=== PATIENT | female | born 1955 | race Caucasian/White ===

== ENCOUNTER 2016-10-22 07:55 | Emergency (ER) | payer SELFPAY ==
[~2016-10-22] VITALS: Ht 157.5 cm; Wt 85.3 kg
[~2016-10-22 07:55] MED LIST: ALLOPURINOL100 M1 PO; AMITRIPTYLINE10 MG PO; ATENOLOL100 MG PO; BENAZEPRIL40 MG PO; BENTYL20 MG PO; CENTRUM1 TAB PO; ESTRADIOL1 MG OR; FLEXERIL5 MG PO; FUROSEMIDE 20MG20 MG FT; HYDROCHLOROTHIA25 M1 PO; HYDROCODONE BI473 ML PO; LEVOTHYROXIN0.112 M1 PO; LYRICA100 MG PO; MEDROL 4MG. DOSE4 MG PO; MELOXICAM7.5 MG PO; METOPROLOL TAR100 MG PO; MORPHINE SULFAT15 M2 PO; NEURONTIN800 MG PO; NORCO 325 MG-101 TAB PO; PERCOCET 325 MG1 TA3 PO; POTASSIUM CHLO20 ME2 PO; PRILOSEC20 M1 PO; ROBAXIN 500 MG500 MG PO; SYNTHROID0.112 MG PO; VENLAFAXINE75 M1 PO; VITAMIN D1000 IU PO; ZOFRAN ODT4 MG PO; ZYLOPRIM 100MG100 MG PO
[2016-10-22 08:17] LABS: HEMOGLOBIN 14.4 g/dL (12.2-16.2); LYMPH # 3.4 K/mm3 (0.7-4.5); LYMPH % 22.3 % (10-50.0)
--- NOTE | 2016-10-22 08:18 | Emergency Room Report ---
History of Present Illness Time Seen by MD Taylor Presenting Problem in Triage Pt arrived:Wheelchair Presenting Problem:RIGHT FLANK PAIN Onset of symptoms date/time:10/22/16 or onset unknown for: Treatment Prior to Arrival: [employer] Provided by: Sepsis Risk Assessment: Temp: 98.4 B/P: 115/67 MAP: 83 Pulse: 84 Resp: 20 Recent fever? N Clinical Suspician of Infection? N Mental Status: 1 - Regular (Normal Baseline) Sepsis Risk:Low Sepsis Risk Have you (or family members/close friends) recently traveled outside the [place]? N If Yes, where/when: Have you had exposure to infectious disease within the past month? N TB? Other? Specify: Hx renal calculi requiring stenting in past; patient of Dr. Kirby; last calculi was about three years ago. Presents with acute and intense intermittent R flank pain, hematuria, nausea since last night, classic for renal calculus in past. Has chronic pain syndrome and chronic neuropathy. ALLERGIES Coded Allergies: Sulfa (Sulfonamide Antibiotics) (01/12/16) ciprofloxacin (From CIPRO) (ITCH[place] 07/30/15) codeine (01/12/16) hydromorphone (01/12/16) sulfacetamide (01/12/16) Home Medications Reported Medications Benazepril Hydrochloride (Benazepril) 40 MG PO DAILY POTASSIUM CHL (Potassium Chloride) 20 MEQ PO BID Metoprolol Tartrate (Metoprolol 100MG) 100 MG PO DAILY ALLOPURINOL (ZYLOPRIM 100MG) 300 MG PO DAILY MULTIVIT,THER IRON,CA,FA & MIN (Sm Therapeutic M Tablet) 1 TAB PO DAILY OMEPRAZOLE MAGNESIUM (Prilosec 20MG) 20 MG PO DAILY CHOLECALCIFEROL (VITAMIN D3) (Vitamin D3) 2,000 IUNITS PO DAILY Methocarbamol (Robaxin 500MG) 500 MG PO TID Pregabalin (Lyrica) 100 MG PO TID Levothyroxine Sodium (Levothyroxine 0.112MG) 0.112 MG PO DAILY Furosemide (Furosemide) 20 MG FT DAILY History Medical History General CAD? No Angina: No [place]: No Hypertension? Yes Hyperlipidemia? No CHF? No DVT? No PE? No COPD? No Asthma? No Anemia? No GERD? No Gastric ulcers? No GI Bleed? No Hernia? Yes Thyroid Problems? Yes Hypothyroidism? No CVA? No Seizures? No Diabetes? No Renal Insuffiency? No End Stage Renal Disease? No UTI? Yes Stones? Yes BPH? No GB Disease: Yes Nephritic Syndrome? No Asplenia? No Hepatitis? No Sickle Cell Disease? No Arthritis? Yes Migraines? No Cataracts? No Glaucoma? No MRSA? No HIV? No TB? No Anxiety? No Depression? No Cancer? No Immunization Hx DT/Tetanus UNKNOWN Flu THIS YR Pneumonia NEVER Surgical Hx Previous Surgery?Y Appendix Tubal Ligation Gallbladd Renal Back KNEE REPLACEMENT LEFT Family History Family Hx Diabetes Yes CAD No Hypertension Yes Hyperlipidemia Yes Cancer No TB No Social History Smoking Hx Smoker: Never Smoker Tobacco: No Packs/day N/A Alcohol Alcohol: No Review of Systems All Other Systems Reviewed and Negative Gastrointestinal see HPI Genitourinary see HPI. Psychiatric/Neurological pre-existing deficit Physical Exam Vital Signs Vital Signs Date Time Temp Pulse Resp B/P Pulse O2 O2 Flow FiO2 Ox Delivery Rate 10/22 0853 18 10/22 0829 18 10/22 0816 18 10/22 0758 98.4 84 20 115/67 96 General Appearance normal appearance, WD/WN, moderate distress Eye Exam - bilateral eye normal exam, bilateral eye PERRL Neck normal inspection, non-tender, supple, full range of motion Respiratory Status Yes: trachea midline, chest symmetrical, non tender chest. No: respiratory distress, tender on palpation, use of accessory muscles, pain on inspiration, pain on expiration, productive cough, non productive cough. Lung Sounds bilateral: normal breath sounds, lungs clear. Cardiovascular normal exam, regular rate/rhythm, no peripheral edema, no gallop, no JVD, no murmur, no rub, normal peripheral pulses Gastrointestinal normal bowel sounds, normal exam, non tender, soft, no organomegaly, no guarding, no rebound Back CVA tenderness (R) Extremities normal range of motion Neurologic alert, normal exam, no motor/sensory deficits, oriented x 3 Skin intact, normal color, warm/dry Medical Decision Making LABS/Meds/Orders Pt receiving controlled substance in ED? Yes All was queried for this patient? Yes Reference #: [id number] Risks/benefits of using a controlled substance for treatment were discussed w/pt by me Results/Orders Laboratory Tests 10/22/16 0833: Urine Color YELLOW, Urine Appearance CLEAR, Urine pH 6.0, Ur Specific [place] 1.010, Urine Protein NEGATIVE, Urine Ketones NEGATIVE, Urine Blood 1+ H, Urine Nitrate NEGATIVE, Urine Bilirubin NEGATIVE, Urine Urobilinogen 0.2, Ur Leukocyte Esterase NEGATIVE, Urine RBC 5-10, Urine WBC OCC, Ur Squamous Epith Cells OCC, Urine Glucose NEGATIVE 10/22/16 0805: Sodium 136, Potassium 3.7, Chloride 100, Carbon Dioxide 27, BUN 21 H, Creatinine 1.4 H, Estimated Creat Clear 58, Estimated GFR (MDRD) 38 L, Glucose 200 H, Calcium 9.3, Total Bilirubin 0.5, AST 17, ALT 22, Alkaline Phosphatase 113, Total Protein 8.3 H, Albumin 3.6, Globulin 4.7 H, Albumin/Globulin Ratio 0.8 L, WBC 15.1 H, RBC 5.09, Hgb 14.4, Hct 43.0, MCV 84.3, RDW 16.9, Plt Count 77 L, MPV 11.9 H, Gran % 64.0, Gran # 9.7 H, Total Counted 100, Lymphocytes % 22.3, Monocytes % 11.3 H, Eosinophils % 1.6, Basophils % 0.8, Neutrophils 66, Lymphocytes (Manual) 28, Lymphocytes # 3.4, Monocytes (Manual) 5, Monocytes # 1.7 H, Eosinophils # 0.2, Eosinophils # (Manual) 1, Basophils # 0.1, Platelet Estimate CLUMPED, Anisocytosis 1+, PUBS MCHC 33.6, MCH 28.3 Current Medication Orders Sig/Jim Start time Last Medication Dose Route Stop Time Status Admin Promethazine HCl 0 .STK-MED ONE 10/22 906 DC .ROUTE Morphine Sulfate 4 MG ONCE ONE 10/22 899 DCr 10/22 IV 10/22 900 0853 Promethazine HCl 12.5 MG ONCE ONE 10/22 899 DC 10/22 IV 10/22 900 09 Sodium Chloride 25 ML ONCE ONE 10/22 899 CAN IV 10/22 913 Morphine Sulfate 0 .STK-MED ONE 10/22 850 DCr .ROUTE Ketorolac 30 MG ONCE ONE 10/22 829 DC 10/22 Tromethamine IV 10/22 830 08 Ketorolac 0 .STK-MED ONE 01/24 0827 DC Tromethamine .ROUTE Morphine Sulfate 4 MG ONCE ONE 10/22 0815 DCr 10/22 IV 10/22 0816 0816 Ondansetron HCl 4 MG ONCE ONE 10/22 0815 DC 10/22 IV 10/22 0816 0817 Sodium Chloride 10 ML PRN PRN 10/22 0815 AC IV 10/23 0808 Sodium Chloride 1,000 ML .Q4H 10/22 0815 AC 10/22 IV 10/22 1214 0819 Sodium Chloride 10 ML PRN PRN 10/22 0815 AC IV 10/23 0810 Morphine Sulfate 0 .STK-MED ONE 10/22 08 DCr .ROUTE Ondansetron HCl 0 .STK-MED ONE 10/22 08 DC .ROUTE Sodium Chloride 1,000 ML .STK-MED ONE 10/22 805 DC IV Orders Procedure Date/time Status DIET-NOTHING BY MOUTH 10/[address] ABD/PELVIS REQ 10/22 0811 Complete IV SALINE LOCK 10/22 0811 Active URINALYSIS/COMPLETE 10/22 0811 Complete CBC WITH AUTO DIFF 10/22 08 Complete CHEM 12 PROFILE 10/22 0811 Complete DIFFERENTIAL-WBC 10/22 0805 Complete XRAY/CT/US XRAY/CT/US CT interpretation by reviewed by me (report reviewed) Time results known: 916 CT Results normal/NAD (R ureter dil: UTI/passed calc) Progress ED Progress Notes Date 10/22/16 Time 09 Comment Pain well controlled. I suspect she passed a stone during her ED stay as evidenced by acute relief of pain as well as CT scan showing dilatation of ureter c/w recently passed stone. Departure Departure Time of Disposition 09 Disposition DC Home or Self Care(routine) Clinical Impression Primary Impression: Acute right flank pain Secondary Impressions: History of kidney stones, Right ureter dilated Condition STABLE Referrals Mirta LOUIE,Gabriel Mason Patient Instructions DI for Kidney Stones Additional Instructions See Dr. Kirby or your family doctor in about 5-7 days to recheck urine and recheck you. You may need further testing as your right ureter was dilated today as seen on CT scan and the radiologist has indicated he cannot rule out a mass. More likely, you passed a stone today. Your urologist can review the findings and determine what needs to be done next. Rx Naproxen and Zofran. Discharge Counseling Counseled pt/family regarding diagnosis, test results, medications/RX, home care, follow up needs Prescriptions Current Visit Scripts NAPROXEN (NAPROXEN 500MG TAB) 500 MG PO BIDP PRN pain #12 TAB Ondansetron (Zofran 4MG Odt) 4 MG PO Q6HP PRN NAUSEA AND VOMITING #6 ODT ED Critical Care Critical Care No at 0924
[2016-10-22 08:38] LABS: URINE BILIRUBIN - DIPSTICK NEGATIVE (NEG); URINE BLOOD 1+ (NEG)
[2016-10-22 08:43] LABS: URINE SQUAMOUS CELLS OCC #/hpf (0-5)
[2016-10-22 08:57] LABS: NEUTROPHILS 66 % (42-76)
--- NOTE | 2016-10-22 09:05 | RADIOLOGY REPORT PS360 ---
CT ABD PELVIS W/O CONTRAST CLINICAL INDICATION: Right flank pain HX OF CALCULI, RT FLANK PAIN, HEMATURIA ORDERING PHYSICIAN: Zoe Madden MD PATIENT AGE: 61 years COMPARISON: 07/30/2015 TECHNIQUE: Axial images obtained with sagittal and coronal reformats. PROCEDURE: Oral Contrast: None IV Contrast: None . FINDINGS: Lower thorax: No acute finding ABDOMEN: Liver: No masses or biliary dilatation. Gallbladder: Cholecystectomy Pancreas: No masses or peripancreatic fluid collections. Spleen: Unremarkable. Adrenals: Unremarkable Kidneys/ureters: There is mild right hydronephrosis and hydroureter with moderate stranding of the perinephric and periureteral fat. A definite obstructing stone however is not identified. There are several calcifications along the course of the right ureter but are all felt to be vascular and has a similar appearance on 03/23/2014. Recently passed stone, urinary tract infection, or even a distal ureteral lesion is a consideration. Follow-up is recommended. There are nonobstructing bilateral renal calculi. The proximal ureter has a somewhat thickened appearance Stomach bowel: Nondistended. No obvious mass or thickening. Appendix: No evidence of appendicitis. PELVIS: Reproductive: Unremarkable Bladder: Nondistended. No obvious stones or masses. ABDOMEN & PELVIS: Peritoneum: No abnormal fluid collections. No obvious inflammatory changes. No free air. Tiny umbilical hernia containing fat Lymph nodes: No enlarged lymph nodes apparent. Vasculature: No evidence of abdominal aortic aneurysm. No retroperitoneal hemorrhage evident. Bones: No acute fracture IMPRESSION: 1. Mild dilatation of the right renal pelvis and ureter with a somewhat thickened appearance of the proximal ureter with stranding of the peripelvic and periureteral fat. A recently passed stone with urinary tract infection is a consideration. Other considerations would include neoplasm of the ureter. Follow-up recommended. 2. Bilateral nonobstructing renal calculi.
[2016-10-22] MEDS ORDERED: NAPROXEN SODIU500 MG PO (09:24)
[2016-10-22] MEDS ORDERED: ZOFRAN ODT4 MG PO (09:24)
[2016-10-22 11:59] VITALS: BP 110/60
== END 2016-10-22 12:02 | disposition home or self-care (01) ==
LOC: ER 07:55
PROVIDERS: Emergency Medicine
DX: R10.31 Right lower quadrant pain (principal); Z87.442 Personal history of urinary calculi; I10 Essential (primary) hypertension; R73.02 Impaired glucose tolerance (oral)
CPT/HCPCS: J2405